=== PATIENT | male | born 1985 | race Caucasian/White ===

== ENCOUNTER 2017-03-13 12:51 | Emergency (ER) | payer SELFPAY ==
--- NOTE | ~2017-03-13 | CT4 ---
[facility] A Service of [facility] & [facility] RADIOLOGY TEXT RESULTS PATIENT: EVELYN REEVES LOCATION: SED : 81 UNIT #: [id number] AGE: [address]: Ananya Guadarrama SEX: M ORDER DR: [id number] [address] [address] [id number] E MR#: [id number] Acc #: [id number] NAME: EVELYN REEVES : 1985 SEX: M STUDY DATE/TIME: 03/13/2017 13:52 UNIT: SED ROOM: STUDY DESCRIPTION: CT Abd and Pelv Wo Cont Attending Physician: Ananya Guadarrama P.A.-C. Ordering Physician: Ananya Guadarrama P.A.-C. MEDICAL IMAGING REPORT This report is preliminary unless electronic signature is present. EXAM CT abdomen and pelvis without contrast HISTORY Blood in urine. Pain in abdomen for a week. Blood in urine for 3 days. TECHNIQUE Axial 3 mm images were obtained through the abdomen and pelvis without IV or oral contrast. This CT exam was performed with one or more of the following radiation dose reduction techniques: automatic exposure control, adjustment of mA and/or kV according to patient size, and iterative reconstruction. FINDINGS Lung bases are clear. The liver, gallbladder, spleen, pancreas, adrenal glands and left kidney are normal. Right kidney has 3 non-obstructing stones measuring between 3-6 mm in size. There is no hydronephrosis but there does seem to be a probable ureteral stone on the right side. There are calcifications at the base of the bladder. There are 2 adjacent calcifications measuring 5 mm each and they both could represent distal ureteral stones. There is 1 in the ureterovesical junction. I cannot follow the ureter down through the pelvis to confirm that these represent ureteral stones. There are also calcified phleboliths in the pelvis on both sides. The aorta is normal in size and there is no adenopathy. The bowel is normal. The bladder and prostate gland are normal. The bones are unremarkable. IMPRESSION 1. There are two 5 mm calcifications directly adjacent to the expected location of the ureterovesical junction on the right side. Given the symptoms of blood in urine, the patient probably has 2 distal STS. [facility] A Service of [facility] & [facility] RADIOLOGY TEXT RESULTS PATIENT: EVELYN REEVES LOCATION: SED : 83 UNIT #: [id number] AGE: [address]: Ananya Guadarrama SEX: M ORDER DR: non-obstructing ureteral stones. These calcifications measure up to 5 mm in size but there is no hydronephrosis or ureteral distention or inflammation. There are 3 other stones in the right kidney measuring up to 6 mm in size. 2. Otherwise, study is normal. Dictated by... Danielito Zimmerman M.D. THIS IS AN ELECTRONICALLY VERIFIED REPORT Danielito Zimmemran M.D. at 03/14/2017 7:03 AM FEL/pcl TD: 03/13/2017 22:12 JOB #: [id number] MEDICAL IMAGING REPORT Page 1 of 1
--- NOTE | ~2017-03-13 | US115 ---
[facility]. [facility] A Service of [facility] & [facility] RADIOLOGY TEXT RESULTS PATIENT: EVELYN REEVES LOCATION: SED : 83 UNIT #: [id number] AGE: [address]: Ananya Guadarrama SEX: M ORDER DR: [id number] [address] [address] [id number] E MR#: [id number] Acc #: [id number] NAME: EVELYN REEVES : 1985 SEX: M STUDY DATE/TIME: 03/13/2017 14:40 UNIT: SED ROOM: STUDY DESCRIPTION: US Scrotum and Contents Attending Physician: Ananya Guadarrama P.A.-C. Ordering Physician: Ananya Guadarrama P.A.-C. MEDICAL IMAGING REPORT This report is preliminary unless electronic signature is present. EXAM Scrotum ultrasound, 03/13/17. HISTORY Painful urination. Blood in urine x3 days. Scrotal pain 1 week. TECHNIQUE Real-time ultrasonography of the scrotal contents performed. Brennan-scale, color Doppler, and Doppler pulse-wave interrogation utilized. FINDINGS Right testis measures 2.53 cm x 2.99 cm x 4.00 cm. Normal in contour and echotexture. Arterial and venous flow present. Right epididymis unremarkable. Small right hydrocele. Left testis measures 1.77 cm x 2.84 cm x 4.08 cm. Arterial and venous flow in left testis. The bilateral testes are normal in contour and echotexture with no mass lesions seen. Left epididymal head cyst measuring 7.5 mm x 9.7 mm x 10.2 mm. IMPRESSION 1. The bilateral testes are normal in size, contour and echotexture with no testicular mass lesions seen. Arterial and venous flow in the bilateral testes. 2. Small right hydrocele. 3. Left epididymal head cyst measuring up to 10 mm in diameter. Dictated by... Walter Barahona M.D. THIS IS AN ELECTRONICALLY VERIFIED REPORT Walter Barahona M.D. at 03/15/2017 11:31 AM [facility] A Service of [facility] & [facility] RADIOLOGY TEXT RESULTS PATIENT: EVELYN REEVES LOCATION: SED : 83 UNIT #: [id number] AGE: [address]: Ananya Guadarrama SEX: M ORDER DR: Loki TD: 03/13/2017 23:34 JOB #: [id number] MEDICAL IMAGING REPORT Page 1 of 1
[2017-03-13 13:14] LABS: URINE SOURCE CLEAN CATCH
[2017-03-13 13:16] LABS: URINE APPEARANCE CLOUDY; URINE BILIRUBIN NEG (NEG); URINE BLOOD 3+ (NEG); URINE COLOR BROWN; URINE GLUCOSE NEG (NORM); URINE KETONE NEG (NEG); URINE LEUKOCYTE ESTERASE TRACE (NEG); URINE NITRATE POS (NEG); URINE PH 5.5 (5-8); URINE PROTEIN 2+ (NEG); URINE SPECIFIC GRAVITY >=1.030 (1.003-1.035)
[2017-03-13 13:27] LABS: MICRO INDICATED? YES
[2017-03-13 13:30] LABS: URINE RBC INNUM /[HPF] (0-2)
[2017-03-13 13:32] LABS: URINE WBC 50-100 /[HPF] (0-5)
[2017-03-13 13:33] LABS: CULTURE INDICATED? YES; URINE BACTERIA 2+ (NEG)
[2017-03-13 13:52] LABS: BASOPHIL# 0.1 X10e3 (0-0.3); BASOPHIL% 1.4 % (0-2.5); EOSINOPHIL# 0.4 X10e3 (0-0.7); EOSINOPHIL% 4.9 % (0.0-7.0); HEMATOCRIT 38.6 % (38.0-50.0); HEMOGLOBIN 13.1 gm/dL (13.0-16.0); LYMPHOCYTE% 23.5 % (17.0-45.0); MEAN CELL VOLUME 91.2 FL (83-96); MEAN CORPUSCULAR HEMOGLOBIN 30.9 PG (28-34); MEAN CORPUSCULAR HGB CONC 33.8 g/dL (30-36); MEAN PLATELET VOLUME 7.3 FL (6.5-11.5); MONOCYTE# 0.9 X10e3 (0-1.0); MONOCYTE% 11.2 % (3.0-12.0); NEUTROPHIL# 4.9 X10e3 (1.5-7.1); PLATELET COUNT 314 X10e3 (140-420); RED BLOOD COUNT 4.24 X10e (3.90-5.60); RED CELL DISTRIBUTION WIDTH 14.6 % (11.0-15.5); WHITE BLOOD COUNT 8.3 X10e3 (4.0-10.5)
[2017-03-13 13:53] LABS: DIFF IND NO
[2017-03-13 14:11] LABS: BUN/CREATININE RATIO 14.54; CALCIUM SERUM 8.9 mg/dL (8.4-10.2); CREATININE SERUM 1.1 mg/dL (0.6-1.4); GLOM FILT RATE Estimated 87.8 mL/min (>60); POTASSIUM 3.9 mmol/L (3.5-5.1)
== END 2017-03-13 16:26 | disposition home or self-care (01) ==
LOC: SED 12:51
PROVIDERS: Physician Assistant
DX: N30.01 Acute cystitis with hematuria (principal)
CPT/HCPCS: 36415; 74176; 76870; 80048; 81003; 85025; 87086; 96365; 96375; 99284; J0696; J1885

== ENCOUNTER 2017-05-01 18:37 | Emergency (ER) | payer SELFPAY ==
[~2017-05-01] VITALS: Ht 182.9 cm; Wt 68.0 kg
--- NOTE | ~2017-05-01 | CR72 ---
[facility] A Service of [facility] & [facility] RADIOLOGY TEXT RESULTS PATIENT: EVELYN REEVES LOCATION: SED : 83 UNIT #: [id number] AGE: [address]: Danielito Ballard MD SEX: M ORDER DR: [id number] [place] [address] [id number] E MR#: [id number] Acc #: [id number] NAME: EVELYN REEVES : 1985 SEX: M STUDY DATE/TIME: 05/01/2017 18:55 UNIT: SED ROOM: STUDY DESCRIPTION: CR Chest Single View Portable Attending Physician: Danielito Ballard M.D. Ordering Physician: Danielito Ballard M.D. MEDICAL IMAGING REPORT This report is preliminary unless electronic signature is present. EXAM Portable chest HISTORY 31-year-old male with overdose reported DOA. FINDINGS Portable view of the chest demonstrates no acute cardiopulmonary abnormality. Lungs are clear. Heart, mediastinum unremarkable. No pneumothorax. Dictated by... Cherelle Shah M.D. THIS IS AN ELECTRONICALLY VERIFIED REPORT Cherelle Shah M.D. at 05/02/2017 1:03 PM DEYANIRA/antoiner TD: 05/02/2017 03:48 JOB #: [id number] MEDICAL IMAGING REPORT Page 1 of 1
[2017-05-01] MEDS ORDERED: NO MEDICATIONS (18:44)
[2017-05-01 19:34] LABS: ALBUMIN SERUM 4.2 g/dL (3.5-5.0); ALKALINE PHOSPHATASE 63 U/L (32-92); ALT (SGPT) 20 U/L (10-40); AST (SGOT) 22 U/L (10-42); BILIRUBIN,TOTAL 0.4 mg/dL (0.2-2.0); BLOOD UREA NITROGEN 12 mg/dL (9-23); CALCIUM SERUM 8.8 mg/dL (8.4-10.2); CARBON DIOXIDE 31 mmol/L (22-31); CHLORIDE 102 mmol/L (100-111); GLOM FILT RATE Estimated 98.5 mL/min (>60); GLUCOSE FASTING 100 mg/dL (70-110); POTASSIUM 4.2 mmol/L (3.5-5.1); PROTEIN TOTAL SERUM 7.4 g/dL (6.0-8.3); SALICYLATE <4.0 mg/dL; SODIUM 139 mmol/L (135-145)
[2017-05-01 19:35] LABS: ACETAMINOPHEN <10 ug/mL; ALCOHOL BLOOD <5 mg/dL (0); BILIRUBIN, DIRECT <0.1 mg/dL (0.0-0.2); BILIRUBIN,INDIRECT 0.3 mg/dL (0.0-0.9)
[2017-05-01 19:38] LABS: AMPHETAMINE NEG (NEG); BARBITURATES NEG (NEG); BENZODIAZEPINES POS (NEG); COCAINE NEG (NEG); MARIJUANA POS (NEG); OPIATES POS (NEG); TRICYCLIC ANTIDEPRESSANTS NEG (NEG); U METHADONE NEG (NEG)
== END 2017-05-01 20:20 | disposition home or self-care (01) ==
LOC: SED 18:37
PROVIDERS: Emergency Medicine
DX: T40.1X1A Poisoning by heroin, accidental (unintentional), initial encounter (principal); F17.210 Nicotine dependence, cigarettes, uncomplicated
CPT/HCPCS: 36415; 71010; 80048; 80076; 80307; 94640; 96374; 99284; G0480